=== PATIENT | male | born 1990 | race Caucasian/White ===

== ENCOUNTER 2018-07-23 19:37 | Emergency (ER) | payer MEDICAID ==
[~2018-07-23] VITALS: Ht 165.1 cm; Wt 54.5 kg
--- NOTE | 2018-07-23 19:37 | NUR ---
BIB EMS FOR SI WITHOUT A PLAN AND DELUSIONS, PT WAS JUST DISCHARGED FROM [facility], [facility] WITH Rx's FOR MEDS THAT HE RAN OUT OF 2 DAYS AGO. HX OF SCHIZOPHRENIA, BIPOLAR D/O, AND INSOMNIA. PT STATES THAT HE IS HOMELESS.
--- NOTE | 2018-07-23 19:54 | NUR ---
LOUIE WAGGONER, AT BEDSIDE TO EVALUATE PT.
[2018-07-23 20:13] LABS: BASOPHILS # (AUTO) 0.04 x10^3/uL (0-0.1); BASOPHILS % (AUTO) 1 % (0-1); EOSINOPHILS # (AUTO) 0.14 x10^3/uL (0-0.4); EOSINOPHILS % (AUTO) 2 % (1-7); LYMPHOCYTES # (AUTO) 2.84 x10^3/uL (1-3.4); LYMPHOCYTES % (AUTO) 33 % (22-44); MD NO; MEAN CORPUSCULAR HEMOGLOBIN 31.7 pg (27.5-34.5); MEAN CORPUSCULAR HGB CONC 34.5 g/dL (33.2-36.2); MEAN CORPUSCULAR VOLUME 91.8 fL (81-97); MEAN PLATELET VOLUME 10.3 fL (7.4-10.4); MONOCYTES # (AUTO) 0.85 x10^3/uL (0.2-0.8); MONOCYTES % (AUTO) 10 % (2-9); NEUTROPHILS # (AUTO) 4.69 x10^3/uL (1.8-6.8); NEUTROPHILS % (AUTO) 55 % (42-75); PLATELET COUNT 211 x10^3/uL (130-400); RED BLOOD COUNT 4.88 x10^6/uL (4.38-5.82); RED CELL DISTRIBUTION WIDTH 14.2 % (9.4-14.8)
--- NOTE | 2018-07-23 20:20 | NUR ---
PT SLEEPING ON GURNEY, WOKEN UP WITH LIGHT TOUCH. PT ASKED AGAIN, AFTER MULTIPLE TIMES, TO CHANGE INTO GOWN AND PLACE BELONGINGS IN BAG. GARAGE DOORS DOWN, SITTER OUTSIDE OF ROOM FOR PT SAFETY. PT AWARE OF NEED FOR URINE SAMPLE.
[2018-07-23 20:22] LABS: ALANINE AMINOTRANSFERASE 22 U/L (12-78); ALBUMIN 3.6 g/dL (3.4-5.0); ANION GAP 8 mmol/L (5-15); CALCIUM 8.6 mg/dL (8.5-10.1); CHLORIDE 108 mmol/L (98-107); CREATININE 1.12 mg/dL (0.7-1.3)
[2018-07-23 20:23] LABS: SALICYLATE LEVEL < 1.7 mg/dL (2.8-20.0)
--- NOTE | 2018-07-23 20:24 | NUR ---
LAB AT BEDSIDE.
[2018-07-23 20:25] LABS: ACETAMINOPHEN < 2 mcg/mL (10-30); ALKALINE PHOSPHATASE 94 U/L (45-117); BILIRUBIN,TOTAL 0.5 mg/dL (0.2-1.0)
--- NOTE | 2018-07-23 20:34 | NUR ---
Pt woken up to provide urine sample, with much direction pt led to the bathroom with cup in hand and instructed on how to give urine sample. Pt verbalized understanding. RN in to bathroom when pt expressed that he was finished, pt had placed the urine cup in the toilet and urinated in the toilet. Pt was holding the cap of the cup. Pt led back to his room and advised that we will attempt to get urine sample later.
--- NOTE | 2018-07-23 20:51 | NUR ---
Pt continues sleeping on gurney, sitter outside of door for pt safety.
--- NOTE | 2018-07-23 21:42 | NUR ---
Pt sleeping on gurney, sitter outside of doorway for pt safety.
--- NOTE | 2018-07-23 22:16 | NUR ---
EDT at bedside to assist pt providing urine sample.
--- NOTE | 2018-07-23 22:27 | NUR ---
Pt refusing to urinate for EDT, pt offered straight cath for urine sample collected and pt said "yes." Rn at bedside for straight cath, EDT at bedside to assist. Pt tolerated procedure well. Urine sample obtained and walked to lab.
[2018-07-23 22:56] LABS: AMPHETAMINE SCREEN, URINE Positive (Negative); BARBITURATE SCREEN, URINE Negative (Negative); BENZODIAZEPINE SCREEN, URINE Negative (Negative); CANNABINOID SCREEN, URINE Negative (Negative); COCAINE SCREEN, URINE Negative (Negative); METHADONE SCREEN, URINE Negative (Negative); OPIATE SCREEN, URINE Negative (Negative)
[2018-07-23 23:53] VITALS: BP 110/64
--- NOTE | 2018-07-23 23:53 | NUR ---
Patient/Caregiver given discharge instructions and they have confirmed that they understand the instructions. Patient ambulatory with steady gait. Pt provided taxi cab voucher for safe discharge.
== END 2018-07-23 23:55 | disposition home or self-care (01) ==
LOC: ED 23:50
DX: F22 Delusional disorders (principal); F15.10 Other stimulant abuse, uncomplicated
CPT/HCPCS: 36415; 80053; 80307; 80329; 85025; 99284; G0480